=== PATIENT | female | born 1985 | race American Indian/Alaskan Native ===

== ENCOUNTER 2022-05-02 12:25 | Emergency (ER) | payer MEDICARE ==
[2022-05-02 13:24] VITALS: BP 114/69
--- NOTE | 2022-05-02 16:03 | Emergency Department Report ---
ED General Adult HPI - General Chief complaint: Nausea/Vomiting/Diarrhea Stated complaint: /UNKNOWN WEEKS PUI?: No Time Seen by Provider: 05/02/22 15:21 Source: patient Mode of arrival: Ambulatory Limitations: No Limitations - History of Present Illness Initial comments: This is a 37-year-old -0-1-0 who presents the ED today with abdominal cramping status post 2 days. Patient states last menstrual period was March 26, 2022 and states that she had some light spotting during that cycle. Patient states that she noticed some abdominal cramping in the past 2 days and took a test today that said it was positive, patient presents here for evaluation. Patient denies fever, chills, vaginal bleeding, dysuria, - Related Data Allergies Allergy/AdvReac Type Severity Reaction Status Date / Time No Known Allergies Allergy Verified 05/02/22 13:24 ED Review of Systems ROS: Stated complaint: /UNKNOWN WEEKS Other details as noted in HPI Comment: All other systems reviewed and negative ED Past Medical Hx - Past Medical History Previous Medical History?: No - Surgical History Past Surgical History?: No - Social History Smoking Status: Never Smoker ED Physical Exam - General Limitations: No Limitations General appearance: alert, in no apparent distress - Head Head exam: Present: atraumatic, normocephalic - Eye Eye exam: Present: normal appearance - ENT ENT exam: Present: mucous membranes moist - Neck Neck exam: Present: normal inspection - Respiratory Respiratory exam: Present: normal lung sounds bilaterally. Absent: respiratory distress - Cardiovascular Cardiovascular Exam: Present: regular rate, normal rhythm. Absent: systolic murmur, diastolic murmur, rubs, gallop - GI/Abdominal GI/Abdominal exam: Present: soft, normal bowel sounds - Extremities Exam Extremities exam: Present: normal inspection - Back Exam Back exam: Present: normal inspection - Neurological Exam Neurological exam: Present: alert, oriented X3 - Psychiatric Psychiatric exam: Present: normal affect, normal mood - Skin Skin exam: Present: warm, dry, intact, normal color. Absent: rash ED Course Vital Signs 05/02/22 13:22 Temperature 97.8 F Pulse Rate 75 Respiratory 16 Rate Blood Pressure 114/69 O2 Sat by Pulse 100 Oximetry ED Medical Decision Making - Lab Data Result diagrams: 05/02/22 17:25 - Medical Decision Making 37-year-old female presents with concerns during . Urinalysis is negative, test pending Discussed findings with the patient. Discussed with patient follow-up with [facility]. Referrals given to patient. Discussed with patient if she has any new symptoms such as bleeding or any worsening symptoms she will return to the ED. Patient eloped. I was notified by Juan Manuel CHAPIN that patient had left stating she was hungry and was going to go get food. Critical care attestation.: If time is entered above; I have spent that time in minutes in the direct care of this critically ill patient, excluding procedure time. ED Disposition Clinical Impression: test positive, First trimester Disposition: HOME / SELF CARE / HOMELESS Is pt being admited?: No Does the pt Need Aspirin: No Condition: Stable Instructions: Care Additional Instructions: Make sure to follow up with the obgyn as discussed. Start taking vitamins every day. Tylenol as needed for pain. If you have any worsening symptoms or develop new symptoms please return to ED immediately. Referrals: [facility] [Primary Care Provider] - 3-5 Days [facility] [Provider Group] - 3-5 Days [facility] [Provider Group] - 3-5 Days [facility] [Provider Group] - 3-5 Days Forms: Work/School Release Form(ED)
[2022-05-02 16:49] LABS: Bilirubin,Urine NEG (Negative); Blood,Urine NEG (Negative); Color,Urine Yellow (Yellow); Protein,Urine <15 mg/dL mg/dL (Negative)
[2022-05-02 17:12] LABS: Mucus,Urine FEW /HPF
[2022-05-02 18:03] LABS: Basophils # (Auto) 0.1 K/mm3 (0.0-0.1); Basophils % (Auto) 0.6 % (0.0-1.8); Eosinophils # (Auto) 0.1 K/mm3 (0.0-0.4); Eosinophils % (Auto) 0.9 % (0.0-4.3); Hematocrit 41.2 % (30.3-42.9); Hemoglobin 13.7 gm/dl (10.1-14.3); Lymphocytes # (Auto) 3.4 K/mm3 (1.2-5.4); Lymphocytes % (Auto) 26.1 % (13.4-35.0); Mean Corpuscular HGB Conc 33 % (30-34); Mean Corpuscular Volume 98 fl (79-97); Monocytes # (Auto) 0.8 K/mm3 (0.0-0.8); Monocytes % (Auto) 6.1 % (0.0-7.3); Platelet Count 299 K/mm3 (140-440); Red Blood Count 4.22 M/mm3 (3.65-5.03); Red Cell Distribution Width 12.6 % (13.2-15.2)
[2022-05-02 18:05] LABS: Blood Urea Nitrogen 9 mg/dL (7-17); Calcium 9.7 mg/dL (8.4-10.2); Hemolysis Index 2
[2022-05-02 18:27] LABS: BUN/Creatinine Ratio 15
== END 2022-05-02 23:38 | disposition home or self-care (01) ==
LOC: ED 12:25
DX: O21.9 Vomiting of pregnancy, unspecified (principal); Z32.01 Encounter for pregnancy test, result positive; Z3A.01 Less than 8 weeks gestation of pregnancy
CPT/HCPCS: 36415; 80048; 81001; 84702; 85025; 99283